=== PATIENT | male | born 1970 | race Caucasian/White ===

== ENCOUNTER 2016-04-15 12:54 | Emergency (ER) | payer MEDICAID ==
[2016-04-15] MEDS ORDERED: DIPHENHYDRAMINE 50 MG/ML VIAL ONE (17:00)
[2016-04-15] MEDS ORDERED: METOCLOPRAMIDE 10 MG/2 ML VIAL ONE (17:00)
[2016-04-15] MEDS ORDERED: SODIUM CHLORIDE 0.9% 1,000 ML ONE (17:01)
[2016-04-15] MEDS ORDERED: KETOROLAC 30 MG/ML VIAL ONE (17:01)
[2016-04-15] MEDS ORDERED: Meclizine HCl 25 MG TAB ONE (17:01)
== END 2016-04-15 18:43 | disposition home or self-care (01) ==
LOC: ER 12:54
DX: H81.399 Other peripheral vertigo, unspecified ear (principal); H81.02 Meniere's disease, left ear; G44.211 Episodic tension-type headache, intractable
CPT/HCPCS: 96361; 96374; 96375